=== PATIENT | male | born 1970 | race Caucasian/White ===

== ENCOUNTER 2025-01-09 11:16 | Emergency (ER) | payer OTHER ==
[~2025-01-09] VITALS: Ht 188 cm; Wt 101.0 kg
[2025-01-09 11:17] VITALS: BP 140/99; PULSE 88; RESP 15; O2SAT 98
[2025-01-09 12:37] VITALS: TEMP 99
== END 2025-01-09 12:46 | disposition home or self-care (01) ==
LOC: ER 11:17
DX: M25.511 Pain in right shoulder (principal)
CPT/HCPCS: 73030; 99283